=== PATIENT | female | born 1985 | race Caucasian/White ===

== ENCOUNTER 2016-10-19 12:18 | Emergency (ER) | payer OTHER ==
[2016-10-19 12:31] VITALS: BP 122/53
--- NOTE | 2016-10-19 12:39 | UC ---
General HPI - HPI Summary HPI Summary: Pt would like additional refill for gabapentin 900mg TID; was seen here for same 09/28/16, given rx for 300mg TID #90. Reports she was cleared via phone with Anil Barnett to increase her dose to 900mg TID and she had appt for naltrexone shot yesterday and thought she would get refill then. Was only seem by RN so she did not get a med refill and is out of gabapentin (she is using it for anxiety). - History of Current Complaint Stated Complaint: MED REFILL Time Seen by Provider: 10/19/16 12:26 Hx Obtained From: Patient Onset/Duration: Lasting Weeks Timing: Constant Onset Severity: Moderate Current Severity: Mild Associated Signs & Symptoms: Positive: Agitation - anxiety - Allergy/Home Medications Allergies/Adverse Reactions: Allergies Allergy/AdvReac Type Severity Reaction Status Date / Time No Known Allergies Allergy Verified 10/19/16 12:23 Home Medications: Home Medications Etonogestrel [Nexplanon] 68 mg IMPLANT SEE INSTRUCTIONS 10/19/16 [History Confirmed 10/19/16] Naltrexone [Vivitrol] 380 mg IM MONTHLY 10/19/16 [History Confirmed 10/19/16] PMH/Surg Hx/FS Hx/Imm Hx Previously Healthy: Yes - Surgical History Surgical History: Yes Surgery Procedure, Year, and Place: tonsillectomy - Family History Known Family History: Negative: Cardiac Disease, Hypertension, Diabetes - Social History Alcohol Use: None Substance Use Type: None, 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 Substance Use Comment - Amount & Last Used: hx heroin abuse; last used 08/24/16 Smoking Status (MU): Heavy Every Day Tobacco Smoker Type: Cigarettes Amount Used/How Often: 1/2 PPD Length of Time of Smoking/Using Tobacco: 10+ years Have You Smoked in the Last Year: Yes Household Exposure Type: Cigarettes Cessation Counseling: Patient Advised to Stop Review of Systems Constitutional: Negative Skin: Negative Eyes: Negative ENT: Negative Respiratory: Negative Cardiovascular: Negative Gastrointestinal: Negative Genitourinary: Negative Motor: Negative Neurovascular: Negative Musculoskeletal: Negative Neurological: Negative Psychological: Negative All Other Systems Reviewed And Are Negative: Yes Physical Exam Triage Information Reviewed: Yes Appearance: Well-Appearing, No Pain Distress, Obese Vital Signs: Initial Vital Signs Temp 98.4 F 10/19/16 12:24 Pulse 78 10/19/16 12:24 Resp 16 10/19/16 12:24 BP 122/53 10/19/16 12:24 Pulse Ox 100 10/19/16 12:24 Vital Signs Reviewed: Yes Eye Exam: Normal Eyes: Positive: Conjunctiva Clear ENT Exam: Normal ENT: Positive: Normal ENT inspection, Hearing grossly normal, Pharynx normal, TMs normal Dental Exam: Normal Neck exam: Normal Neck: Positive: Supple, Nontender, No Lymphadenopathy Respiratory Exam: Normal Respiratory: Positive: Chest non-tender, Lungs clear, Normal breath sounds, No respiratory distress, No accessory muscle use Cardiovascular Exam: Normal Cardiovascular: Positive: RRR, No Murmur Musculoskeletal Exam: Normal Neurological Exam: Normal Neurological: Positive: Alert Psychological Exam: Normal Skin Exam: Normal Course/Dx - Differential Dx - Multi-Symptom Provider Diagnoses: Medication refill for anxiety. elevated blood pressure due to anxiety - Physician Notifications Discussed Patient Care With: Kimberley Doss RN at [facility] did not see evidence of any new gabapentin prescriptions from Anil Barnett since pt was out of inpt rehab. Was cleared for taking 600mg gabapentin qid to see if it helps. Discharge - Discharge Plan Condition: Stable Disposition: HOME Prescriptions: Gabapentin CAP(*) [Neurontin 300 CAP(*)] 600 mg PO QID #112 cap Patient Education Materials: Medicine Refill (ED), Anxiety (ED) Referrals: Anil Barnett [Nurse Practitioner] - Additional Instructions: Please see your nurse practitioner within the next 2 weeks, before your gabapentin runs out, to evaluate your symptoms and to make sure all future refills are coming from her. If you have new or worrisome symptoms before then, feel free to return here for a re-evaluation.
== END 2016-10-19 13:22 | disposition home or self-care (01) ==
LOC: UCCORT 12:18
DX: F41.9 Anxiety disorder, unspecified (principal); Z76.0 Encounter for issue of repeat prescription; R03.0 Elevated blood-pressure reading, without diagnosis of hypertension; E66.9 Obesity, unspecified; F17.210 Nicotine dependence, cigarettes, uncomplicated
CPT/HCPCS: 99212; G0463

== ENCOUNTER 2018-11-12 15:30 | Emergency (ER) | payer OTHER ==
[2018-11-12 15:43] VITALS: BP 138/78
--- NOTE | 2018-11-12 16:38 | UC ---
Respiratory Complaint HPI - HPI Summary HPI Summary: 33-year-old woman comes in with a chief complaint of upper respiratory tract infection symptoms for about 5 days. Patient reports is primarily in her chest and she's had fevers and sputum production. Also having rhonchi and wheezing. Shortness breath is worse with activity or laying down. She has not tried any albuterol she has no history of asthma. - History of Current Complaint Chief Complaint: UCRespiratory Stated Complaint: URI Time Seen by Provider: 11/12/18 16:27 Hx Last Menstrual Period: [id number] Pain Intensity: 6 - Allergies/Home Medications Allergies/Adverse Reactions: Allergies Allergy/AdvReac Type Severity Reaction Status Date / Time No Known Allergies Allergy Verified 11/12/18 15:43 PMH/Surg Hx/FS Hx/Imm Hx Previously Healthy: Yes - Surgical History Surgical History: Yes Surgery Procedure, Year, and Place: tonsillectomy - Family History Known Family History: Negative: Cardiac Disease, Hypertension, Diabetes - Social History Alcohol Use: None Substance Use Type: None Substance Use Comment - Amount & Last Used: hx heroin abuse; last used 08/24/16 Smoking Status (MU): Current Some Day Smoker Type: Cigarettes Amount Used/How Often: 1/2 PPD Length of Time of Smoking/Using Tobacco: 10+ years Have You Smoked in the Last Year: Yes Household Exposure Type: Cigarettes Review of Systems All Other Systems Reviewed And Are Negative: Yes Constitutional: Positive: Fever Skin: Positive: Negative Eyes: Positive: Negative ENT: Positive: Nasal Discharge Respiratory: Positive: Shortness Of Breath, Cough, Other - see hpi Cardiovascular: Positive: Negative Gastrointestinal: Positive: Negative Motor: Positive: Negative Neurovascular: Positive: Negative Musculoskeletal: Positive: Negative Neurological: Positive: Negative Psychological: Positive: Negative Is Patient Immunocompromised?: No Physical Exam Triage Information Reviewed: Yes Appearance: No Pain Distress, Well-Nourished, Ill-Appearing - mild Vital Signs: Initial Vital Signs Temp 100.2 F 11/12/18 15:38 Pulse 98 11/12/18 15:38 Resp 18 11/12/18 15:38 BP 138/78 11/12/18 15:38 Pulse Ox 98 11/12/18 15:38 Vital Signs Reviewed: Yes Eye Exam: Normal Eyes: Positive: Conjunctiva Clear ENT: Positive: Pharyngeal erythema, Nasal congestion, TMs normal Neck: Positive: Supple Respiratory: Positive: No respiratory distress, Rhonchi, Wheezing Cardiovascular: Positive: RRR Musculoskeletal Exam: Normal Musculoskeletal: Positive: Strength Intact, ROM Intact Neurological Exam: Normal Neurological: Positive: Alert, Muscle Tone Normal Psychological Exam: Normal Psychological: Positive: Age Appropriate Behavior Skin Exam: Normal Respiratory Course/Dx - Course Course Of Treatment: DISCUSSED VIRAL VERSES BACTERIAL INFECTION AND THE ROLE OF ANTIBIOTICS. THE PATIENT PREFERS TO BE ON ANTIBIOTICS AT THIS TIME. - Differential Dx/Diagnosis Provider Diagnosis: Bronchitis with bronchospasm Discharge - Sign-Out/Discharge Documenting (check all that apply): Patient Departure All imaging exams completed and their final reports reviewed: No Studies - Discharge Plan Condition: Stable Disposition: HOME Prescriptions: Albuterol 2.5MG/3ML (0.083%)* [Ventolin 2.5 MG/3 ML NEB.[place]*] 2.5 mg INH Q4H PRN #30 neb.valentina PRN Reason: Wheezing Albuterol HFA INHALER* [Ventolin HFA Inhaler*] 2 puff INH Q4H PRN #1 mdi PRN Reason: Wheezing Azithromyxin HENRI (NF) [Z-Henri (Zithromax) 250 mg tabs #6] 2 tab PO .TODAY, THEN 1 DAILY #6 tab Benzonatate CAP* [Tessalon 100 MG CAP*] 100 mg PO TID PRN #20 cap PRN Reason: Cough Patient Education Materials: Acute Bronchitis (ED), Bronchospasm (ED) Referrals: [facility] [Outside] Additional Instructions: FOLLOW UP WITH YOUR DOCTOR IF NOT COMPLETELY IMPROVED. GET RECHECKED SOONER IF YOUR CONDITION WORSENS OR ANY QUESTIONS OR CONCERNS. - Billing Disposition and Condition Condition: STABLE Disposition: Home
== END 2018-11-12 17:03 | disposition home or self-care (01) ==
LOC: UCEAST 15:30
DX: J20.9 Acute bronchitis, unspecified (principal); F17.210 Nicotine dependence, cigarettes, uncomplicated
CPT/HCPCS: 99212; G0463

== ENCOUNTER 2019-06-03 10:02 | Emergency (ER) | payer OTHER ==
[2019-06-03 10:20] VITALS: BP 122/70
--- NOTE | 2019-06-03 10:30 | UC ---
Throat Pain/Nasal Ramy HPI - HPI Summary HPI Summary: sore throat x 4 days pain is 6 out 10 , only on the left side of throat, radiating to left ear, worse with swallowing, better with Tylenol no fever, no chills, no cold symptoms, no cough - History of Current Complaint Chief Complaint: UCRespiratory Stated Complaint: HARD TO SWALLOW PAIN Time Seen by Provider: 06/03/19 10:18 Hx Obtained From: Patient Hx Last Menstrual Period: has nexplamon, does not have reg periods ?: No Onset/Duration: Gradual Onset, Lasting Days - 4, Still Present Severity: Moderate Pain Intensity: 6 Cough: None Associated Signs & Symptoms: Negative: Wheezing, Hoarseness, Sinus Discomfort, Nasal Discharge, Fever, Vomiting, Rash - Allergies/Home Medications Allergies/Adverse Reactions: Allergies Allergy/AdvReac Type Severity Reaction Status Date / Time No Known Allergies Allergy Verified 06/03/19 10:11 PMH/Surg Hx/FS Hx/Imm Hx Previously Healthy: Yes - Surgical History Surgical History: Yes Surgery Procedure, Year, and Place: tonsillectomy - Family History Known Family History: Negative: Cardiac Disease, Hypertension, Diabetes - Social History Alcohol Use: None Substance Use Type: None Substance Use Comment - Amount & Last Used: hx heroin abuse; last used 08/24/16 Smoking Status (MU): Current Some Day Smoker Type: Cigarettes Amount Used/How Often: 1 cig a day Length of Time of Smoking/Using Tobacco: 10+ years Have You Smoked in the Last Year: Yes Household Exposure Type: Cigarettes Review of Systems All Other Systems Reviewed And Are Negative: Yes Constitutional: Positive: Negative Skin: Positive: Negative Eyes: Positive: Negative ENT: Positive: Sore Throat Respiratory: Positive: Negative Is Patient Immunocompromised?: No Physical Exam Triage Information Reviewed: Yes Appearance: Well-Appearing, No Pain Distress, Well-Nourished Vital Signs: Initial Vital Signs Temp 98.1 F 06/03/19 10:12 Pulse 75 06/03/19 10:12 Resp 16 06/03/19 10:12 BP 122/70 06/03/19 10:12 Pulse Ox 99 06/03/19 10:12 Vital Signs Reviewed: Yes Eye Exam: Normal Eyes: Positive: Conjunctiva Clear ENT: Positive: Normal ENT inspection, Hearing grossly normal, Pharynx normal, TMs normal. Negative: Pharyngeal erythema, Nasal congestion, Nasal drainage, TM bulging, TM dull, TM red Neck: Positive: Supple, Tenderness @, Enlarged Nodes @ Respiratory: Positive: Chest non-tender, Lungs clear, Normal breath sounds, No respiratory distress Cardiovascular: Positive: RRR, No Murmur, Pulses Normal Throat Pain/Nasal Course/Dx - Differential Dx/Diagnosis Provider Diagnosis: Lymphadenopathy Discharge ED - Sign-Out/Discharge Documenting (check all that apply): Patient Departure All imaging exams completed and their final reports reviewed: No Studies - Discharge Plan Condition: Stable Disposition: HOME Prescriptions: Naproxen [Naproxen 500 mg tab] 500 mg PO BID #20 tablet Patient Education Materials: Lymphadenopathy (ED) Referrals: Tori Metz MD [Primary Care Provider] - If Needed - Billing Disposition and Condition Condition: STABLE Disposition: Home
== END 2019-06-03 10:31 | disposition home or self-care (01) ==
LOC: UCCORT 10:02
DX: R59.1 Generalized enlarged lymph nodes (principal); J02.9 Acute pharyngitis, unspecified; H92.02 Otalgia, left ear; F17.210 Nicotine dependence, cigarettes, uncomplicated
CPT/HCPCS: 99211; G0463